=== PATIENT | male | born 1970 | race Caucasian/White ===

== ENCOUNTER 2017-06-16 21:56 | Emergency (ER) | payer BC ==
[~2017-06-16] VITALS: Ht 172.7 cm; Wt 104.5 kg
[~2017-06-16 21:56] MED LIST: MIRAPEX0.5 MG PO; NORCO 325 MG-51 TAB PO
[2017-06-16 23:22] VITALS: BP 139/77
[2017-06-17] MEDS ORDERED: MULTIVITAMIN1 SGL (00:01)
== END 2017-06-16 23:22 | disposition home or self-care (01) ==
LOC: ED 21:56
DX: L01.03 Bullous impetigo (principal); H62.42 Otitis externa in other diseases classified elsewhere, left ear; F17.210 Nicotine dependence, cigarettes, uncomplicated

== ENCOUNTER 2017-12-10 11:41 | Emergency (ER) | payer BC ==
[~2017-12-10 11:41] MED LIST changes: +MULTIVITAMIN1 SGL
[2017-12-10 14:14] VITALS: BP 113/78
== END 2017-12-10 13:51 | disposition home or self-care (01) ==
LOC: ED 11:41
DX: S63.522A Sprain of radiocarpal joint of left wrist, initial encounter (principal); S63.521A Sprain of radiocarpal joint of right wrist, initial encounter; M77.8 Other enthesopathies, not elsewhere classified; W18.39XA Other fall on same level, initial encounter; Y92.828 Other wilderness area as the place of occurrence of the external cause
CPT/HCPCS: J1885

== ENCOUNTER 2020-07-22 14:28 | Emergency (ER) | payer BC ==
[2020-07-22 15:07] LABS: BASO # 0.04 (0.02-0.10); EOS # 0.15 (0.04-0.40); EOS % 1.4 % (0.0-4.0); HEMATOCRIT 45.6 % (42.0-52.0); HEMOGLOBIN 15.5 g/dL (13.5-18.0); LYMPH# 2.36 (1.50-4.00); MEAN CELL VOLUME 87 fl (78-100); MEAN CORPUSCULAR HEMOGLOBIN 30 pg (27-31); MEAN CORPUSCULAR HGB CONC 34 g/dL (33-37); MONO # 0.85 (0.20-0.80); NEU # 7.33 (1.40-6.50); PLATELET COUNT 272 K/mm3 (130-400); RED BLOOD COUNT 5.25 M/mm3 (4.20-5.60); RED CELL DISTRIBUTION WIDTH 13.1 % (11.5-14.5); WHITE BLOOD COUNT 10.7 K/mm3 (4.8-10.8)
[2020-07-22 15:20] LABS: POTASSIUM 3.7 mmol/L (3.5-5.1)
[2020-07-22 15:21] LABS: CALCIUM 9.4 mg/dL (8.3-10.5)
[2020-07-22 15:22] LABS: TOTAL PROTEIN 7.2 g/dL (6.4-8.3)
[2020-07-22 15:24] LABS: TOTAL BILIRUBIN 0.8 mg/dL (0.2-1.2)
[2020-07-22 16:17] LABS: URINE APPEARANCE CLOUDY; URINE COLOR YELLOW
[2020-07-22 16:18] LABS: URINE BILIRUBIN NEGATIVE (NEGATIVE); URINE BLOOD 250 ery/uL (NEGATIVE); URINE GLUCOSE NEGATIVE (NEGATIVE); URINE KETONE NEGATIVE (NEGATIVE); URINE LEUKOCYTE ESTERASE TRACE (NEGATIVE); URINE MUCUS PRESENT (NOT PRESENT); URINE NITRATE NEGATIVE (NEGATIVE); URINE PROTEIN(semi-quant) TRACE mg/dL (NEGATIVE); URINE UROBILINOGEN NORMAL (NORMAL)
[2020-07-22] MEDS ORDERED: CIPRO500 M1 PO (17:47)
[2020-07-22 17:55] VITALS: BP 142/68
== END 2020-07-22 17:56 | disposition home or self-care (01) ==
LOC: ED 14:28
PROVIDERS: Nurse Practitioner Family
DX: N13.2 Hydronephrosis with renal and ureteral calculous obstruction (principal); R94.5 Abnormal results of liver function studies; F17.210 Nicotine dependence, cigarettes, uncomplicated
CPT/HCPCS: J1885; J2405; J7030; Q9967